=== PATIENT | female | born 1975 | race Caucasian/White ===

== ENCOUNTER 2016-08-16 12:51 | Emergency (ER) | payer OTHER ==
[~2016-08-16] VITALS: Ht 152.4 cm; Wt 63.5 kg
[2016-08-16] MEDS ORDERED: MOBIC15 MG PO (15:21)
[2016-08-16 15:40] VITALS: BP 122/79
== END 2016-08-16 15:41 | disposition home or self-care (01) ==
LOC: ER 12:51
DX: M25.521 Pain in right elbow (principal); V43.62XA Car passenger injured in collision with other type car in traffic accident, initial encounter; Y93.I9 Activity, other involving external motion; Y92.488 Other paved roadways as the place of occurrence of the external cause; Y99.8 Other external cause status